=== PATIENT | male | born 1985 | race Caucasian/White ===

== ENCOUNTER 2017-08-16 14:55 | Emergency (ER) | payer SELFPAY ==
[2017-08-16] MEDS ORDERED: Bacitracin 500 Units/gm Oint Foilpak UD TOP ONE (16:32)
--- NOTE | 2017-08-16 16:33 | C.PDOC ---
History Of Present Illness 31 y/o male presents to the ED for an evaluation of the back of the head. The patient was cleaning the bathroom and the glass on the wall that was hanging 6 ft above his head fell. The patient denies LOC, headaches, dizziness, nausea, vomiting, and visual changes. Time Seen by Provider: 08/16/17 16:07 Chief Complaint (Nursing): Abnormal Skin Integrity History Per: Patient History/Exam Limitations: no limitations Onset/Duration Of Symptoms: Days Current Symptoms Are (Timing): Still Present Past Medical History Reviewed: Historical Data, Nursing Documentation, Vital Signs Vital Signs: Last Vital Signs Temp 98.2 F 08/16/17 16:46 Pulse 85 08/16/17 16:46 Resp 16 08/16/17 16:46 BP 129/80 08/16/17 16:46 Pulse Ox 96 08/16/17 17:53 Surgical History: No Surg Hx Family History: States: Unknown Family Hx, Stroke (Father), [place] (Father) - Social History Hx Tobacco Use: No Hx Alcohol Use: Yes Hx Substance Use: No - Immunization History Hx Tetanus Toxoid Vaccination: No Hx Influenza Vaccination: No Hx Pneumococcal Vaccination: No Review Of Systems Except As Marked, All Systems Reviewed And Found Negative. Gastrointestinal: Negative for: Nausea, Vomiting Musculoskeletal: Negative for: Neck Pain, Shoulder Pain Skin: Positive for: Other (scalp abrasion) Neurological: Negative for: Weakness, Numbness Physical Exam - Physical Exam Appears: Well, Non-toxic, No Acute Distress Skin: Warm, Dry, No Rash Head: Normacephalic, No Tenderness, No Swelling, Abrasion (superficial crown scalp abrasion) Eye(s): bilateral: PERRL, EOMI Oral Mucosa: Moist Neck: Normal, Normal ROM, No Midline Cervical Tenderness, No Paracervical Tenderness, Supple Extremity: Normal ROM, Capillary Refill (<2sec.) Neurological/Psych: Oriented x3, Normal Speech, Normal Cognition Gait: Steady ED Course And Treatment O2 Sat by Pulse Oximetry: 96 (RA) Pulse Ox Interpretation: Normal Progress Note: The patient has been advised to have a follow up with the PMD to have a further evaluation. Reassessment Condition: Improved Disposition - Disposition Referrals: Sarika Blanco MD [Staff Provider] - Disposition: HOME/ ROUTINE Disposition Time: 16:31 Condition: STABLE Additional Instructions: FOLLOW UP WITH PMD ON FRIDAY FOR RE-EVALUATION. APPLY BACITRACIN OINTMENT 3 TIMES A DAY TO SCALP ABRASION. IF VOMITING, HEADACHE, WOUND REDNESS, SWELLING OR DISCHARGE DEVELOP RETURN TO ED. Instructions: Head Injury (ED), Abrasion (ED) Forms: General Discharge Instructions, [facility] (Cam[place]onian) - Clinical Impression Clinical Impression: Scalp abrasion - PA / [employer] / Resident Statement MD/DO has reviewed & agrees with the documentation as recorded. MD/DO has examined the patient and agrees with the treatment plan. - Scribe Statement Anna Kiser All medical record entries made by the Scribe were at my direction and personally dictated by me. I have reviewed the chart and agree that the record accurately reflects my personal performance of the history, physical exam, medical decision making, and the department course for this patient. I have also personally directed, reviewed, and agree with the discharge instructions and disposition.
--- NOTE | 2017-08-16 16:34 | C.PDOC ---
Time Seen by Provider: 08/16/17 16:07 Chief Complaint (Nursing): Abnormal Skin Integrity Past Medical History Vital Signs: Last Vital Signs Temp 97.9 F 08/16/17 14:58 Pulse 90 08/16/17 14:58 Resp 18 08/16/17 14:58 BP 134/82 08/16/17 14:58 Pulse Ox 96 08/16/17 14:58 Family History: States: Unknown Family Hx, Stroke (Father), [place] (Father) - Social History Hx Tobacco Use: No Hx Alcohol Use: Yes Hx Substance Use: No - Immunization History Hx Tetanus Toxoid Vaccination: No Hx Influenza Vaccination: No Hx Pneumococcal Vaccination: No ED Course And Treatment O2 Sat by Pulse Oximetry: 96 Disposition Counseled Patient/Family Regarding: Diagnosis, Need For Followup - Disposition Referrals: Sarika Blanco MD [Staff Provider] - Disposition: HOME/ ROUTINE Disposition Time: 16:32 Condition: STABLE Additional Instructions: FOLLOW UP WITH PMD ON FRIDAY FOR RE-EVALUATION. APPLY BACITRACIN OINTMENT 3 TIMES A DAY TO SCALP ABRASION. IF VOMITING, HEADACHE, WOUND REDNESS, SWELLING OR DISCHARGE DEVELOP RETURN TO ED. Instructions: Abrasion (ED), Head Injury (ED) Forms: [facility] (Welsh), General Discharge Instructions - Clinical Impression Clinical Impression: Scalp abrasion
[2017-08-16] MEDS ORDERED: Bacitracin 500 Units/gm Oint Foilpak UD ONE (16:41)
[2017-08-16] MEDS ORDERED: Tetanus/Diphtheria Toxoids 0.5 ml Syringe IM ONE (16:42)
[2017-08-16 16:47] VITALS: BP 129/80; PULSE 85; RESP 16; TEMP 98.2
[2017-08-16 16:48] VITALS: O2SAT 96
== END 2017-08-16 16:46 | disposition home or self-care (01) ==
LOC: C.ER 14:55
DX: S00.01XA Abrasion of scalp, initial encounter (principal); W22.8XXA Striking against or struck by other objects, initial encounter; Y93.E5 Activity, floor mopping and cleaning; Y92.002 Bathroom of unspecified non-institutional (private) residence as the place of occurrence of the external cause